=== PATIENT | male | born 1955 | race Caucasian/White ===

== ENCOUNTER → 2022-07-01 | Emergency (ER) | payer MEDICARE, BC ==
[~2022-07-01] VITALS: Ht 167.6 cm; Wt 89.8 kg
[~2022-07-01] MED LIST: IV NS 0.9% 1,000 ML BAG IV ONE
[2022-07-01 15:49] VITALS: BP 111/55
--- NOTE | 2022-07-01 16:14 | NUR ---
Patient AOx4 able to express his own concerns. Patient states he is feeling alot better now. Discussed plan of care, patient verbalized agreement. All safety precautions taken, will continue to monitor.
--- NOTE | 2022-07-01 16:25 | NUR ---
Collected labs and sent to lab
[2022-07-01 16:27] LABS: BASOPHILS % (AUTO) 0.3 % (0.0-2.0); EOSINOPHILS % (AUTO) 1.8 % (0.0-6.0); HEMATOCRIT 46 % (39-51); HEMOGLOBIN 15.6 g/dL (13.5-17.5); LYMPHOCYTES # (AUTO) 2.7 K/uL (0.8-4.8); LYMPHOCYTES % (AUTO) 25.2 % (20.0-44.0); MEAN CORPUSCULAR HGB CONC 34 g/dl (31.0-36.0); MEAN CORPUSCULAR VOLUME 92 fL (80-96); MONOCYTES # (AUTO) 0.8 K/uL (0.1-1.30); MONOCYTES % (AUTO) 7.3 % (2.0-12.0); NEUTROPHILS % (AUTO) 65.4 % (43.0-81.0); PLATELET COUNT (AUTO) 239 K/uL (150-450); RED BLOOD CELL COUNT(AUTO) 4.94 MIL/uL (4.5-6.0); WHITE BLOOD COUNT (AUTO) 10.7 K/uL (4.3-11.0)
[2022-07-01 17:05] LABS: ALANINE AMINOTRANSFERASE 43 U/L (12-78); ALBUMIN 3.6 g/dL (3.4-5.0); ALKALINE PHOSPHATASE 69 U/L (46-116); ASPARTATE AMINOTRANSFERASE 46 U/L (15-37); BILIRUBIN,TOTAL 0.7 mg/dL (0.2-1.0); CARBON DIOXIDE 32 mmol/L (21-32); CHLORIDE 103 mmol/L (98-107); CREATININE 1.5 mg/dL (0.6-1.3); GLUCOSE 121 mg/dL (74-106); POTASSIUM 5.7 mmol/L (3.5-5.1); SODIUM SERUM 138 mmol/L (136-145); TOTAL PROTEIN, SERUM 7.3 g/dL (6.4-8.2); UREA NITROGEN, BLOOD 30 mg/dL (7-18)
--- NOTE | 2022-07-01 18:01 | NUR ---
Discussed diascharge plan with pt and , verbalized agreement. IV completed, dressing clean, dry and intact. Patient signed forms. All safety precautions taken.
== END | disposition home or self-care (01) ==
LOC: ER 16:29
DX: R55 Syncope and collapse (principal); I10 Essential (primary) hypertension
CPT/HCPCS: 99285; 96360; 70450; 71045; 93005; 85025; 80048; 80076; 36415; 84484; 85730; 83880; J7030

== ENCOUNTER 2022-11-29 17:31 | Emergency (ER) | payer MEDICARE, BC ==
[~2022-11-29] VITALS: Ht 160 cm; Wt 93.0 kg
[2022-11-29] MEDS ORDERED: LIDOCAINE 5% (PATCH) 1 EA PATCH TP SCH (18:00)
[2022-11-29] MEDS ORDERED: KETOROLAC TROMETHAMINE INJ 60 MG/2 ML VIAL IM ONE (18:00)
[2022-11-29] MEDS ORDERED: KETOROLAC TROMETHAMINE INJ 30 MG/ML VIAL ONE (18:25)
[2022-11-29] MEDS ORDERED: LIDOCAINE 5% (PATCH) 1 EA PATCH TP ONE (18:32)
[2022-11-29] MEDS ORDERED: IBUP-1953 PO (19:02)
[2022-11-29] MEDS ORDERED: TYL2T PO (19:02)
[2022-11-29 19:09] VITALS: BP 132/81; TEMP 98.2; O2SAT 98
== END 2022-11-29 19:10 | disposition home or self-care (01) ==
LOC: ER 17:31
DX: S86.812A Strain of other muscle(s) and tendon(s) at lower leg level, left leg, initial encounter (principal); I10 Essential (primary) hypertension; Z79.899 Other long term (current) drug therapy; W01.0XXA Fall on same level from slipping, tripping and stumbling without subsequent striking against object, initial encounter; Y93.89 Activity, other specified; Y92.89 Other specified places as the place of occurrence of the external cause; Y99.8 Other external cause status
CPT/HCPCS: 99285; 96372; 73552; 76882; 73564; J1885